=== PATIENT | male | born 2000 | race Hispanic/Latino ===

== ENCOUNTER 2022-09-06 16:36 | Emergency (ER) | payer OTHER, BC ==
[~2022-09-06] VITALS: Ht 172.7 cm; Wt 113.4 kg
[2022-09-06 16:40] VITALS: O2SAT 97
[2022-09-06] MEDS ORDERED: KETOROLAC TROMETHAMINE 30 MG/ML VIAL IV STA (17:01)
[2022-09-06] MEDS ORDERED: DEXAMETHASONE SOD PHOS INJ 4 MG/ML SDV ONE (17:13)
[2022-09-06] MEDS ORDERED: KETOROLAC TROMETHAMINE 30 MG/ML VIAL ONE (17:14)
[2022-09-06] MEDS ORDERED: METOCLOPRAMIDE HCL 10 MG/2ML VIAL ONE (17:14)
[2022-09-06] MEDS ORDERED: SODIUM CHLORIDE 0.9% 1000ML 1,000 ML ONE (17:14)
[2022-09-06] MEDS ORDERED: METOCLOPRAMIDE HCL 10 MG/2ML VIAL IV ONE (17:15)
[2022-09-06] MEDS ORDERED: DEXAMETHASONE SOD PHOS 10 MG/1 ML VIAL IV ONE (17:15)
[2022-09-06] MEDS ORDERED: SODIUM CHLORIDE 0.9% 1000ML 1,000 ML IV SCH (17:15)
[2022-09-06] MEDS ORDERED: ONDANSETRON HCL 4 MG ORAL DISINTEGRATING TAB ONE (17:57)
[2022-09-06] MEDS ORDERED: ONDANSETRON HCL 4 MG ORAL DISINTEGRATING TAB PO ONE (18:00)
[2022-09-06] MEDS ORDERED: ONDANSETRON ODT4 MG PO (18:04)
[2022-09-06] MEDS ORDERED: FIORICET 50-301 EACH PO (18:04)
== END 2022-09-06 18:12 | disposition home or self-care (01) ==
LOC: FSED 16:40
DX: R51.9 Headache, unspecified (principal); T75.4XXA Electrocution, initial encounter; W86.1XXA Exposure to industrial wiring, appliances and electrical machinery, initial encounter; Y92.89 Other specified places as the place of occurrence of the external cause; F17.210 Nicotine dependence, cigarettes, uncomplicated
CPT/HCPCS: 70450; 71045; 80053; 82553; 84484; 85025; 93005; 99283; J1100; J1885; J2765; J7030; Q0162